=== PATIENT | male | born 1975 ===

== ENCOUNTER 2025-08-22 13:58 | Emergency (ER) | payer OTHER ==
[2025-08-22] MEDS ORDERED: Cefepime 2 GM VIAL ONE (16:53)
[2025-08-22] MEDS ORDERED: Vancomycin (BATCH) 2.5 GM in Premix 1 BAG IVPB SCH (17:15)
[2025-08-22 17:51] LABS: Hematocrit 39.6 % (42.0-52.0); Hemoglobin 12.5 g/dL (14.0-18.0); Mean Corpuscular Hemoglobin 25.6 pg (27.0-31.0); Mean Corpuscular Volume 81.0 fL (78.0-98.0); Platelet Count 163 10x3/uL (130-400); Red Blood Cell (RBC) Count 4.89 mill/uL (4.70-6.10); White Blood Cell (WBC) Count 18.64 10x3/uL (4.8-10.8)
[2025-08-22 18:07] LABS: ALT (SGPT) 29 U/L (Less than 45); AST (SGOT) 39 U/L (11-34); Albumin 3.1 g/dL (3.1-4.5); Alkaline Phosphatase 111 U/L (40-110); Anion Gap 18 mmol/L (10-20); BUN (Urea Nitrogen) 16 mg/dL (8.9-20.6); Bilirubin, Total 2.0 mg/dL (0.3-1.2); Calc. Creatinine Clearance 0 mL/min (70-130); Calcium 9.6 mg/dL (7.8-10.44); Carbon Dioxide 22 mmol/L (22-29); Chloride 101 mmol/L (98-107); Globulin 5.1 g/dL (2.4-3.5); Glucose 126 mg/dL (70-105); Potassium 3.9 mmol/L (3.5-5.1); Sodium 137 mmol/L (136-145)
[2025-08-22 18:13] LABS: Anisocytosis SLIGHT = 6-15 cells HPF (0-5); Burr Cells MODERATE= 6-15 cells HPF (0-1); Platelet Adequacy Comment Platelets Normal; Poikilocytosis MODERATE=16-30 cells HPF (0-5); Smudge Cells 3.0 %
[2025-08-22] MEDS ORDERED: Ketorolac Tromethamine 30 MG (1 mL) VIAL ONE (19:34)
[2025-08-22] MEDS ORDERED: Acetaminophen 500 MG TAB ONE (23:14)
[2025-08-23] MEDS ORDERED: HYDROmorphone 0.5 MG/0.5 ML SYRINGE ONE (02:39)
[2025-08-23] MEDS ORDERED: Ketorolac Tromethamine 30 MG (1 mL) VIAL ONE (06:56)
[2025-08-23] MEDS ORDERED: Acetaminophen 500 MG TAB ONE (07:56)
[2025-08-23] MEDS ORDERED: Cefepime 2 GM VIAL ONE (07:57)
[2025-08-23] MEDS ORDERED: Droperidol 5 MG/2 ML VIAL ONE (08:28)
== END 2025-08-23 13:47 | disposition short-term general hospital (02) ==
LOC: ERS 13:58 → EEVIPCON 13:58 → ERS 08-23 13:47
DX: L97.929 Non-pressure chronic ulcer of unspecified part of left lower leg with unspecified severity (principal); L97.919 Non-pressure chronic ulcer of unspecified part of right lower leg with unspecified severity; I10 Essential (primary) hypertension; Z79.899 Other long term (current) drug therapy
CPT/HCPCS: 36415; 80053; 83605; 85025; 87040; 93005; 96365; 96375; 96376; J0692; J1171; J1790; J1885; J2270; J3373